=== PATIENT | male | born 1955 | race Caucasian/White ===

== ENCOUNTER 2017-05-22 00:28 | Inpatient (IN) | payer OTHER ==
[2017-05-22] VITALS (17 sets, daily range): BP systolic 97–130; BP diastolic 57–63; PULSE 60–73; RESP 13–16; TEMP 97.6–99.6; O2SAT 89–100
[~2017-05-22] VITALS: Ht 170.2 cm; Wt 91.2 kg
[2017-05-22] MEDS ORDERED: IOHEXOL 350 MG/ML 10 ML VIAL (for RAD DIAG) IVCONTRAST ONE (00:46)
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
[2017-05-22 00:58] LABS: I-STAT POTASSIUM 3.7 MMOL/L (3.5-4.9)
[2017-05-22 01:06] LABS: APTT (PATIENT) 22.9 SEC (24.3-30.1); PROTHROMBIN TIME - PATIENT 11.5 SEC (9.8-11.6)
[2017-05-22 01:07] LABS: BASOPHIL # 0.1 TH/MM3 (0-0.2); BASOPHIL % 0.9 % (0.0-2.0); EOSINOPHIL # 0.2 TH/MM3 (0-0.4); EOSINOPHIL % 2.6 % (0.0-4.0); HEMATOCRIT 36.4 % (39.0-51.0); HEMO FLAGS DIFF FINAL; LYMPH % 33.9 % (9.0-44.0); LYMPHOCYTE # 2.7 TH/MM3 (1.0-4.8); MEAN CELL VOLUME 97.1 FL (80.0-100.0); MEAN CORPUSCULAR HEMOGLOBIN 33.3 PG (27.0-34.0); MEAN CORPUSCULAR HGB CONC 34.3 % (32.0-36.0); MONO % 12.6 % (0.0-8.0); PLATELET COUNT 244 TH/MM3 (150-450); RED BLOOD COUNT 3.75 MIL/MM3 (4.50-5.90); RED CELL DISTRIBUTION WIDTH 11.9 % (11.6-17.2)
[2017-05-22] MEDS ORDERED: PROPOFOL 500 MG/50 ML INJ 50 ML ONE (01:16)
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
[2017-05-22] MEDS ORDERED: PROPOFOL 1000 MG/100 ML INJ 100 ML IV PRN (01:30)
[2017-05-22] MEDS ORDERED: ONDANSETRON HCL 4 MG/2 ML VIAL IV PUSH PRN (01:30)
[2017-05-22] MEDS ORDERED: SODIUM CHLORIDE 0.9% FLUSH 10 ML FLUSH IV FLUSH PRN (01:30)
[2017-05-22] MEDS ORDERED: NALOXONE HCL 0.4 MG/ML AMP IV PUSH PRN (01:30)
[2017-05-22] MEDS ORDERED: Post-op Orders (for Pharmacy) MISC XX ONE (01:30)
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
[2017-05-22] MEDS ORDERED: DEXTROSE 50% IN WATER 50 ML VIAL(D50) IV PUSH PRN (02:15)
[2017-05-22] MEDS ORDERED: MAGNESIUM SULFATE INJ 2 GM in SODIUM CHLORIDE 0.9% INJ 96 ML IV PRN (02:15)
[2017-05-22] MEDS ORDERED: POTASSIUM PHOSPHATE MONOBASIC 500 MG TAB PO/TUBE PRN (02:15)
[2017-05-22] MEDS ORDERED: POTASSIUM PHOSPHATE MONOBASIC 500 MG TAB PO PRN (02:15)
[2017-05-22] MEDS ORDERED: SODIUM PHOSPHATE INJ 30 MMOL in SODIUM CHLOR 0.9% 250 ML INJ 240 ML IV PRN (02:15)
[2017-05-22] MEDS ORDERED: POTASSIUM CHLORIDE 25 MEQ EFFERVESCENT TAB PO PRN (02:15)
[2017-05-22] MEDS ORDERED: GLUCAGON 1 MG/ML VIAL OTHER PRN (02:15)
[2017-05-22] MEDS ORDERED: MAGNESIUM OXIDE 400 MG TAB PO PRN (02:15)
[2017-05-22] MEDS ORDERED: POTASSIUM PHOSPHATE INJ 30 MMOL in SODIUM CHLOR 0.9% 250 ML INJ 250 ML IV PRN (02:15)
[2017-05-22] MEDS ORDERED: POTASSIUM CHLOR 20 MEQ PREMIX 100 ML IV PRN ×2 (02:15)
[2017-05-22] MEDS ORDERED: POTASSIUM CHLOR 40 MEQ PREMIX 100 ML IV PRN ×2 (02:15)
[2017-05-22] MEDS ORDERED: MAGNESIUM SULFATE INJ 4 GM in SODIUM CHLORIDE 0.9% INJ 92 ML IV PRN (02:15)
[2017-05-22 02:27] LABS: BLOOD GAS BASE EXCESS -4.3 mmol/L (-2-2); BLOOD GAS CARBOXYHEMOGLOBIN 1.1 % (0-4); BLOOD GAS HCO3 20 mmol/L (22-26); BLOOD GAS METHEMOGLOBIN 0.9 % (0-2); BLOOD GAS O2 HGB SATURATION 98 % (90-100); BLOOD GAS OXYGEN CONTENT 15.7 Vol % (12.0-20.0); BLOOD GAS PCO2 39 mmHg (38-42); BLOOD GAS PO2 238 mmHg (61-120); CRITICAL VALUE NO; DRAW SITE LT BRACHIAL; FIO2 60 %; NUMBER OF ARTERIAL PUNCTURES 1; OXYGEN DEVICE VENTILATOR; STAT NO; TEMP CORR TO 98.6; VENT SETTINGS AC 16/600/10PEEP
[2017-05-22] MEDS: SODIUM CHLOR 0.9% 1000 ML INJ 1,000 ML IV SCH ×2 (02:28→07:40)
[2017-05-22] MEDS: INSULIN ASPART SUPPLEMENTAL SCALE SQ SCH ×5 (03:27→20:51)
[2017-05-22] MEDS ORDERED: SODIUM CHLOR 0.9% 1000 ML INJ 1,000 ML IV ONE (05:45)
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
[2017-05-22] MEDS ORDERED: MORPHINE SULFATE 4 MG/ML INJ IV PUSH PRN ×2 (07:15→10:30)
[2017-05-22] MEDS ORDERED: LACTULOSE SYRUP 20 GM/30 ML CUP PO PRN (07:15)
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
[2017-05-22] MEDS: BACITRACIN TOP OINT 15 GM TUBE TOPICAL SCH ×2 (07:39→20:00)
[2017-05-22] MEDS: FAMOTIDINE 20 MG/2 ML VIAL IV PUSH SCH ×2 (07:44→20:01)
[2017-05-22] MEDS: DOCUSATE SODIUM 50 MG/SENNA 8.6 MG TAB PO SCH ×2 (07:44→20:02)
[2017-05-22] MEDS: SODIUM CHLORIDE 0.9% FLUSH 10 ML FLUSH IV FLUSH SCH ×2 (07:45→20:02)
[2017-05-22] MEDS ORDERED: CHLORHEXIDINE 0.12% (ORAL KIT) 15 ML CUP MT SCH (08:00)
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
[2017-05-22] MEDS: oxyCODONE/ACETAMINOPHEN 5 MG/325 MG TAB PO PRN ×2 (13:24→20:10)
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
--- NOTE | 2017-05-22 17:33 | RADRPT ---
EXAM DATE/TIME: 05/22/2017 17:11 [facility] COMPARISON: No previous studies available for comparison. INDICATIONS : Right ankle pain. ALF. MEDICAL HISTORY : None. SURGICAL HISTORY : None. ENCOUNTER: Initial ACUITY: 1 day PAIN SCORE: 0/10 LOCATION: Right ankle FINDINGS: Soft tissue swelling is present laterally. Is a nondisplaced fracture of the distal fibula. The ankle mortise is intact. There also findings suspicious for fracture of the fifth metatarsal and foot radi ographs are recommended. CONCLUSION: 1. Distal fibular fracture 2. Fracture fifth metatarsal Jose Quach MD on May 22, 2017 at 17:30 Board Certified Radiologist. This report was verified electronically.
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
[2017-05-22] MEDS: oxyCODONE/ACETAMINOPHEN 10 MG/325 MG TAB PO PRN (23:57)
[2017-05-23] VITALS (7 sets, daily range): BP systolic 120–142; BP diastolic 60–70; PULSE 67–92; RESP 18; TEMP 97.5–98.8; O2SAT 93–95
[2017-05-23] MEDS: oxyCODONE/ACETAMINOPHEN 10 MG/325 MG TAB PO PRN ×4 (04:12→20:12)
[2017-05-23 06:34] LABS: AUTOMATED NEUTROPHIL # 7.3 TH/MM3 (1.8-7.7); BASOPHIL # 0.1 TH/MM3 (0-0.2); BASOPHIL % 0.5 % (0.0-2.0); EOSINOPHIL # 0.1 TH/MM3 (0-0.4); EOSINOPHIL % 1.1 % (0.0-4.0); HEMATOCRIT 33.9 % (39.0-51.0); HEMO FLAGS DIFF FINAL; LYMPH % 11.4 % (9.0-44.0); LYMPHOCYTE # 1.1 TH/MM3 (1.0-4.8); MEAN CELL VOLUME 95.9 FL (80.0-100.0); MEAN CORPUSCULAR HEMOGLOBIN 33.6 PG (27.0-34.0); MONO % 12.9 % (0.0-8.0); NEUT % 74.1 % (16.0-70.0); PLATELET COUNT 185 TH/MM3 (150-450); RED BLOOD COUNT 3.54 MIL/MM3 (4.50-5.90); RED CELL DISTRIBUTION WIDTH 11.9 % (11.6-17.2); WHITE BLOOD COUNT 9.8 TH/MM3 (4.0-11.0)
[2017-05-23 06:49] LABS: BICARBONATE 27.1 MEQ/L (21.0-32.0)
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
[2017-05-23] MEDS: DOCUSATE SODIUM 50 MG/SENNA 8.6 MG TAB PO SCH ×2 (09:17→20:08)
[2017-05-23] MEDS: FAMOTIDINE 20 MG/2 ML VIAL IV PUSH SCH (09:18)
[2017-05-23] MEDS: SODIUM CHLORIDE 0.9% FLUSH 10 ML FLUSH IV FLUSH SCH ×2 (09:18→20:08)
[2017-05-23] MEDS: BACITRACIN TOP OINT 15 GM TUBE TOPICAL SCH ×2 (09:19→20:09)
[2017-05-23] MEDS: INSULIN ASPART SUPPLEMENTAL SCALE SQ SCH ×5 (09:37→20:44)
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
[2017-05-23 15:59] LABS: HEMOGLOBIN A1a 0.9 %; HEMOGLOBIN LA1C 2.4 %; HEMOGLOBIN P3 4.1 %
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
[2017-05-23] MEDS: FAMOTIDINE 20 MG TAB PO SCH (20:08)
[2017-05-24] VITALS (7 sets, daily range): BP systolic 113–140; BP diastolic 59–75; PULSE 64–82; RESP 16–19; TEMP 98–98.8; O2SAT 94–97
[2017-05-24] MEDS: oxyCODONE/ACETAMINOPHEN 10 MG/325 MG TAB PO PRN ×4 (05:58→20:31)
--- NOTE | 2017-05-24 07:12 | PD.POD ---
Subjective Pain score: 5 Remarks Pain is some what improving, question re: broken teeth. Past Med/Surg/Social History Social History Smoking Status: Never Smoker Objective Vital Signs Vital Signs Date Time Temp Pulse Resp B/P (MAP) Pulse Ox O2 Delivery O2 Flow Rate FiO2 05/24/17 03:57 98.0 82 18 133/71 (91) 96 05/24/17 00:15 98.4 80 18 139/67 (91) 94 05/23/17 21:00 92 05/23/17 20:25 98.8 79 18 142/69 (93) 95 05/23/17 15:00 98.1 68 18 122/65 (84) 95 05/23/17 11:36 97.5 68 18 125/60 (81) 94 05/23/17 09:25 94 05/23/17 07:53 98.0 67 18 120/65 (83) 93 Coded Allergies: No Known Allergies (Unverified , 05/22/17) Medications and IVs Administered Medications Medications (Trade) Dose Ordered Sig/Rambo Route PRN Reason Start Time Stop Time Status Last Admin Dose Admin Sodium Chloride (NS Flush) 2 ml BID IV FLUSH 05/22/17 09:00 05/23/17 09:18 Bacitracin (Baciguent Oint) 1 applic Q12HR TOPICAL 05/22/17 02:15 05/23/17 20:09 Senna/Docusate Sodium (Val-Colace) 1 tab BID PO 05/22/17 09:00 05/23/17 20:08 Morphine Sulfate (Morphine Inj) 4 mg Q3HR PRN IV PUSH breakthrough pain 05/22/17 10:30 05/22/17 11:00 Oxycodone/ Acetaminophen (Percocet 5-325 Mg) 1 tab Q4H PRN PO Pain 3-5 05/22/17 10:30 05/22/17 20:10 Oxycodone/ Acetaminophen (Percocet 10-325 Mg) 1 tab Q4H PRN PO Pain 6-10 05/22/17 10:30 05/24/17 05:58 Insulin Aspart (NovoLOG SUPPLEMENTAL SCALE) 1 ACHS SLIDING SCALE SQ 05/22/17 17:00 05/23/17 20:44 Famotidine (Pepcid) 20 mg BID PO 05/23/17 21:00 05/23/17 20:08 Physical Exam Remarks GENERAL: This is an alert and oriented gentleman seen bedside exhibiting nonlabored respirations. SKIN: He has multiple abrasions over his forehead, facial area, upper and lower extremities. LEFT LOWER EXTREMITY: There is no point tenderness upon palpating below the tibial tuberosity down to the ankle of the foot. RIGHT LOWER EXTREMITY: There is no pain upon palpating the distal tibia. There is mild pain upon palpating the right distal fibula; however, no crepitus or instability. Improved swelling and edema over the distal lateral foot. There is pain upon palpating the fifth metatarsal. On palpating the midfoot and Lisfranc joint there is no obvious crepitus or instability noted. Pedal pulses are fully palpable. Sensation is intact. The patient is capable of extension and flexion of digits. Assessment & Plan Diagnosis: (1) Fracture of fifth metatarsal bone of right foot ICD Codes: S92.351A - Displaced fracture of fifth metatarsal bone, right foot, initial encounter for closed fracture (2) Fracture of fibula, right, closed ICD Codes: S82.401A - Unspecified fracture of shaft of right fibula, initial encounter for closed fracture A/P ORIF planned of the right 5th metatarsal planned for tomorrow. Distal fibula fracture is non surgical, will be treated with immobilization. Question re: broken will leave to medicine for consult if deemed appropriate Patrick Rosen DPM May 24, 2017 07:12
[2017-05-24] MEDS: DOCUSATE SODIUM 50 MG/SENNA 8.6 MG TAB PO SCH ×2 (09:32→20:30)
[2017-05-24] MEDS: FAMOTIDINE 20 MG TAB PO SCH ×2 (09:32→20:30)
[2017-05-24] MEDS: SODIUM CHLORIDE 0.9% FLUSH 10 ML FLUSH IV FLUSH SCH ×2 (09:34→20:35)
[2017-05-24] MEDS: INSULIN ASPART SUPPLEMENTAL SCALE SQ SCH ×4 (09:35→20:29)
[2017-05-24] MEDS: BACITRACIN TOP OINT 15 GM TUBE TOPICAL SCH ×2 (09:35→21:10)
[2017-05-24] MEDS ORDERED: LEVO150T7 PO (09:36)
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
[2017-05-24] MEDS ORDERED: ENOXAPARIN SODIUM 40 MG/0.4 ML SYRINGE SQ SCH (13:00)
[2017-05-24] MEDS ORDERED: SENN1TAB PO (19:52)
[2017-05-24] MEDS ORDERED: MILKSUS PO (19:52)
[2017-05-25 00:01] VITALS: BP 118/69; PULSE 67; RESP 18; TEMP 99; O2SAT 98
[2017-05-25 03:39] VITALS: BP 145/76; PULSE 66; RESP 19; TEMP 98.2; O2SAT 96
[2017-05-25] MEDS: LEVOTHYROXINE SODIUM 150 MCG TAB PO SCH ×2 (04:20→10:06)
[2017-05-25] MEDS ORDERED: BUPIVACAINE HCL PF 0.25% 30 ML VIAL ONE (05:41)
[2017-05-25] MEDS ORDERED: ACETAMINOPHEN 1000 MG/100 ML 100 ML IV ONE (06:25)
[2017-05-25] MEDS: INSULIN ASPART SUPPLEMENTAL SCALE SQ SCH (07:00)
[2017-05-25] MEDS ORDERED: ceFAZolin 2 GM PREMIX 50 ML IV ONE (07:00)
[2017-05-25] MEDS ORDERED: DO NOT ADM ANY ANTICOAGULANT DRUGS PRN (08:27)
--- NOTE | 2017-05-25 08:28 | HHI.PR ---
Immediate Post Op Note Procedure Date: May 25, 2017 Pre Op Diagnosis: (1) Fracture of fifth metatarsal bone of right foot Post Op Diagnosis: same Surgeon: Patrick Samuel [employer]): scrub Procedure: ORIF 5th metatarsal Right Findings: see op dict Complications: none Specimen(s) removed: none Estimated blood loss: less 30mL Anesthesia: General Drains: None IVF Tourniquet time (min at mmHg) approx 40 min 215 mmhg about the right ankle Patient to: PACU Patient Condition: Good Implant/Devices: SEE IMPLANT LOG (if applicable) Date/Time of Procedure: SEE SURGICAL CARE RECORD Patrick Samuel DPM May 25, 2017 08:28
[2017-05-25] MEDS ORDERED: KETOROLAC TROMETHAMINE 30 MG/ML (IVP) VIAL IV PUSH PRN (08:30)
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
[2017-05-25] MEDS: DOCUSATE SODIUM 50 MG/SENNA 8.6 MG TAB PO SCH (09:00)
[2017-05-25] MEDS: SODIUM CHLORIDE 0.9% FLUSH 10 ML FLUSH IV FLUSH SCH (09:00)
--- NOTE | 2017-05-25 09:20 | RADRPT ---
EXAM DATE/TIME: 05/25/2017 07:29 [place] COMPARISON: No previous studies available for comparison. INDICATIONS : Right foot fracture, ORIF done in operating room. MEDICAL HISTORY : None. SURGICAL HISTORY : None. ENCOUNTER: Initial ACUITY: 1 day PAIN SCORE: Non-responsive. LOCATION: Right foot, 5th metatarsel. FINDINGS: Plate with screws bridging fracture fifth metatarsal in anatomic alignment. CONCLUSION: Anatomic alignment. Joaquin Hartman MD FACR on May 25, 2017 at 9:19 Board Certified Radiologist. This report was verified electronically.
[2017-05-25 09:45] VITALS: O2SAT 93
[2017-05-25] MEDS: FAMOTIDINE 20 MG TAB PO SCH (10:08)
[2017-05-25] MEDS: BACITRACIN TOP OINT 15 GM TUBE TOPICAL SCH (10:08)
--- NOTE | 2017-05-25 10:18 | HHI.PR ---
Objective Vitals/I&O Vital Signs Date Time Temp Pulse Resp B/P (MAP) Pulse Ox O2 Delivery O2 Flow Rate FiO2 05/25/17 09:45 93 05/25/17 09:00 98.2 63 14 128/60 (82) Nasal Cannula 2 05/24/17 20:33 21 Radiology Last Impressions Head CT 05/22/17799 Signed Impressions: Service Date/Time: Monday, May 22, 2017 11:00 - CONCLUSION: Unremarkable and stable CT scan of the brain compared to the prior study. Norman Mae MD Chest X-Ray 05/22/17799 Signed Impressions: Service Date/Time: Monday, May 22, 2017 07:51 - CONCLUSION: No acute disease. Norman Mae MD Thoracic Spine CT 05/22/1745 Signed Impressions: Service Date/Time: Monday, May 22, 2017 00:46 - CONCLUSION: No acute abnormality seen. Glenroy Joe MD Lumbar Spine CT 05/22/1745 Signed Impressions: Service Date/Time: Monday, May 22, 2017 00:46 - CONCLUSION: 1. Fracture at the lateral aspect of the right L4 transverse process. 2. Mild bulging at the L4-L5 and minimal bulging at the L5-S1 disc levels. Glenroy Joe MD Chest CT 05/22/1741 Signed Impressions: Service Date/Time: Monday, May 22, 2017 00:46 - CONCLUSION: 1. Possible nondisplaced fracture at the first costochondral junction/upper left sternum. 2. Small amount of air seen in the subcutaneous tissues at the anterior right lateral chest. 3. Suspected atelectasis or consolidation/contusion at the posterior lung bases including an area of nodularity at the left base. This could be followed up with a future CT examinations several months. Glenroy Joe MD Cervical Spine CT 05/22/1741 Signed Impressions: Service Date/Time: Monday, May 22, 2017 00:42 - CONCLUSION: 1. No acute bony abnormalities seen. 2. Upper cervical facet hypertrophy. Glenroy Joe MD Abdomen/Pelvis CT 05/22/17 0042 Signed Impressions: Service Date/Time: Monday, May 22, 2017 00:46 - CONCLUSION: 1. No acute abnormality seen. 2. Hepatic steatosis. 3. Left renal cyst. Glenroy Joe MD Foot X-Ray 05/22/17 0000 Signed Impressions: Service Date/Time: Monday, May 22, 2017 17:36 - CONCLUSION: Fractured distal right fifth metatarsal with significant soft tissue swelling. Clark So MD Ankle X-Ray 05/22/17 0000 Signed Impressions: Service Date/Time: Monday, May 22, 2017 17:11 - CONCLUSION: 1. Distal fibular fracture 2. Fracture fifth metatarsal MD Raz Franklin Justine F ARNP May 25, 2017 10:18
[2017-05-25] MEDS ORDERED: BACI500O2 TOPICAL (11:06)
[2017-05-25] MEDS ORDERED: OXYC1TAB63 PO (11:06)
[2017-05-25 11:51] VITALS: BP 150/69; PULSE 73; RESP 18; TEMP 96.6; O2SAT 96
[2017-05-25] MEDS ORDERED: MIDAZOLAM HCL 2 MG/2 ML VIAL IV ONE (12:00)
[2017-05-25] MEDS ORDERED: LACTATED RINGER'S 1000 ML INJ 1,000 ML IV ONE (12:00)
[2017-05-25] MEDS ORDERED: ONDANSETRON HCL 4 MG/2 ML VIAL IV PUSH ONE (12:00)
[2017-05-25] MEDS ORDERED: PROPOFOL 200 MG/20 ML AMP IV ONE (12:00)
[2017-05-25] MEDS ORDERED: DEXAMETHASONE SOD PHOS 4 MG/ML VIAL IV ONE (12:00)
[2017-05-25] MEDS ORDERED: LIDOCAINE HCL 1% PF 5 ML AMPULE OTHER ONE (12:00)
[2017-05-25] MEDS ORDERED: WALKER WHEELS/F1 MIS (12:48)
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
--- NOTE | 2017-05-25 13:55 | EKG ---
Date Performed: 05/24/2017 Time Performed: 22:41:32 PTAGE: 61 years EKG: Sinus rhythm NORMAL ECG NO PREVIOUS TRACING DOCTOR: Nitish Luna Interpretating Date/Time 05/25/2017 13:46:19
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
== END 2017-05-25 15:08 | disposition home or self-care (01) | DRG 503 ==
LOC: NEPI 00:28 → NEDA 01:07 → EDBD 01:07 → N03A 01:20 → N06A 21:15
PROVIDERS: ADMIT Surgery; ATTEND Surgery
PROC: 0QSN04Z Reposition Right Metatarsal with Internal Fixation Device, Open Approach (ICD-10-PCS; principal; 2017-05-25 06:56)
DX: S82.831A Other fracture of upper and lower end of right fibula, initial encounter for closed fracture (principal); J96.01 Acute respiratory failure with hypoxia; S27.322A Contusion of lung, bilateral, initial encounter; D62 Acute posthemorrhagic anemia; S06.0X9A Concussion with loss of consciousness of unspecified duration, initial encounter; S22.20XA Unspecified fracture of sternum, initial encounter for closed fracture; S22.32XA Fracture of one rib, left side, initial encounter for closed fracture; S32.049A Unspecified fracture of fourth lumbar vertebra, initial encounter for closed fracture; V23.4XXA Motorcycle driver injured in collision with car, pick-up truck or van in traffic accident, initial encounter; Y92.410 Unspecified street and highway as the place of occurrence of the external cause; S92.351A Displaced fracture of fifth metatarsal bone, right foot, initial encounter for closed fracture; S00.01XA Abrasion of scalp, initial encounter; S80.211A Abrasion, right knee, initial encounter; S20.221A Contusion of right back wall of thorax, initial encounter; E03.9 Hypothyroidism, unspecified; E11.65 Type 2 diabetes mellitus with hyperglycemia; N28.1 Cyst of kidney, acquired
CPT/HCPCS: 36600; 70450; 71010; 71260; 72125; 72128; 72131; 73100; 73610; 73620; 73630; 74177; 76000; 80048; 82435; 82565; 82805; 82947; 82948; 83036; 84132; 84295; 84520; 85025; 85610; 85730; 86850; 86900; 86901; 87641; 93005; 94002; 94150; 94770; C1713; J0131; J0690; J1100; J1650; J1815; J2250; J2270; J2405; J3010; J7030; J7120; L2114; Q9967